=== PATIENT | male | born 1965 | race Caucasian/White ===

== ENCOUNTER 2017-08-20 08:22 | Emergency (ER) | payer BC ==
[2017-08-20 08:37] VITALS: BP 117/79
[2017-08-20] MEDS ORDERED: guaiFENesin LIQ* 100 MG/5 ML UDC PO ONE (08:43)
[2017-08-20] MEDS ORDERED: Benzonatate CAP* 100 MG PO ONE (08:44)
--- NOTE | 2017-08-20 08:51 | UC ---
Respiratory Complaint HPI - HPI Summary HPI Summary: 52 year old male with history of MS here with fever, cough and congestion for 4 days. Reports symptoms started with malaise and weakness. No n/v/d. No travel or sick contacts. Did not get the flu vaccination this year. - History of Current Complaint Chief Complaint: UCGeneralIllness Stated Complaint: FLU SYMPTOMS Time Seen by Provider: 08/20/17 08:43 Pain Intensity: 4 - Allergies/Home Medications Allergies/Adverse Reactions: Allergies Allergy/AdvReac Type Severity Reaction Status Date / Time No Known Allergies Allergy Verified 08/20/17 08:32 Home Medications: Home Medications Dimethyl Fumarate(NF) [Tecfidera(NF)] 1 tab PO BID 08/20/17 [History Confirmed 08/20/17] Ibuprofen/Pseudoephedrine HCl [Advil Cold & Sinus Caplet] 2 tab PO Q8HR PRN 07/09 [History Confirmed 08/20/17] Losartan TAB* [Cozaar TAB*] 1 tab PO DAILY 08/20/17 [History Confirmed 08/20/17] Simvastatin TAB(NF) [Zocor 10 MG (NF)] 1 tab PO DAILY 08/20/17 [History Confirmed 08/20/17] metFORMIN* [Glucophage 1000 MG TAB *] 1,000 mg PO BID 08/20/17 [History Confirmed 08/20/17] PMH/Surg Hx/FS Hx/Imm Hx - Surgical History Surgical History: Yes Surgery Procedure, Year, and Place: 1979 RIGHT KNEE ORIF REPAIR- [facility]. 2010 BILATERAL CATARACT EXT WITH IOL- [facility] - Social History Alcohol Use: None Substance Use Type: None Smoking Status (MU): Never Smoked Tobacco Have You Smoked in the Last Year: No Review of Systems Constitutional: Fever, Chills Skin: Negative Eyes: Negative Respiratory: Cough Cardiovascular: Chest Pain Gastrointestinal: Negative Genitourinary: Negative Motor: Negative Neurovascular: Negative Musculoskeletal: Negative Neurological: Negative Psychological: Negative All Other Systems Reviewed And Are Negative: Yes Physical Exam Triage Information Reviewed: Yes Appearance: Well-Appearing, No Pain Distress Vital Signs: Initial Vital Signs Temp 37.8 C 08/20/17 08:34 Pulse 95 08/20/17 08:34 Resp 16 08/20/17 08:34 BP 117/79 08/20/17 08:34 Pulse Ox 97 08/20/17 08:34 Vital Signs Reviewed: Yes ENT: Positive: Nasal congestion, Nasal drainage. Negative: Hoarse voice, Dental tenderness, Sinus tenderness Neck: Positive: Supple Respiratory: Positive: Chest non-tender, Lungs clear, Normal breath sounds, No respiratory distress Abdomen Description: Positive: Nontender Musculoskeletal Exam: Normal Neurological Exam: Normal Psychological Exam: Normal Skin Exam: Normal UC Diagnostic Evaluation - Laboratory Pertinent Lab Values Are: WNL Except: O2 Sat by Pulse Oximetry: 97 Diagnostic Studies Comment: Influzenza B positive Respiratory Course/Dx - Course Course Of Treatment: Gave patient symptomatic treatment. Patient reassured and discussed about tamiflu vs. only symptomatic treatment. No utility of tamiflu since symptoms started 4 days ago. He opted not to have tamiflu. - Differential Dx/Diagnosis Differential Diagnosis/HQI/PQRI: Bronchitis, Influenza, Lower Resp Infection Provider Diagnoses: Influenza B Discharge - Discharge Plan Condition: Good Disposition: HOME Prescriptions: Acetaminoph/Cod 120/12 mg LIQ* [Tylenol/Codeine 120/12 LIQ*] 5 ml PO Q12HR PRN 10 Days #1 bottle MDD 10 PRN Reason: Cough Acetaminoph/Cod 120/12 mg LIQ* [Tylenol/Codeine 120/12 LIQ*] 10 ml PO Q12H PRN # 120 ml MDD 20ml PRN Reason: Cough Guaifenesin/Dextromethorphan [Adult Cough Formula Dm Max Liq] 5 ml PO Q6HR PRN # 1 bottle PRN Reason: Cough Patient Education Materials: Influenza (ED), Viral Syndrome (ED) Forms: *Work Release Referrals: Iam Mccabe MD [Primary Care Provider] -
== END 2017-08-20 09:41 | disposition home or self-care (01) ==
LOC: UCEAST 08:22
DX: J10.1 Influenza due to other identified influenza virus with other respiratory manifestations (principal)
CPT/HCPCS: 87502; 99212; A9270-GY; G0463